=== PATIENT | male | born 1945 | race Caucasian/White ===

== ENCOUNTER 2017-10-22 06:46 | Day surgery (SDC) | payer MEDICARE, BC ==
[~2017-10-22 06:46] MED LIST: Lactated Ringers 1,000 ML IV SCH
[2017-10-22] MEDS ORDERED: Midazolam 1 MG/ML 2 ML SDV ONE (07:05)
[2017-10-22] MEDS ORDERED: fentaNYL 100 MCG/2 ML SDV ONE (07:05)
[2017-10-22] MEDS ORDERED: Propofol 200 MG/20 ML SDV ONE ×2 (07:05→07:49)
--- NOTE | 2017-10-22 07:18 | PCM.PREANE ---
Preanesthetic Assessment - Anesthesia/Transfusion/Family Hx Anesthesia History: Prior Anesthesia Without Reaction Other Type of Anesthesia Reaction Comment: denies any known problems in past Family History of Anesthesia Reaction: No Transfusion History: No Prior Transfusion(s) Intubation History: Unknown - Review of Systems General: No Symptoms Pulmonary: No Symptoms Cardiovascular: No Symptoms Gastrointestinal: Other (h/o colon polyps and diverticulitis x2) Neurological: No Symptoms Other: Reports: None - Physical Assessment Height: 1.75 m Weight: 94.801 kg ASA Class: 2 Mental Status: Alert & Oriented x3 Airway Class: Mallampati = 2 Dentition: Reports: Normal Dentition, [place](s) (gold crown upper left (back)) Thyro-Mental Finger Breadths: 3 Mouth Opening Finger Breadths: 2 ROM/Head Extension: Limited/Partial Lungs: Clear to Auscultation, Normal Respiratory Effort Cardiovascular: Regular Rate, Regular Rhythm - Allergies Allergies/Adverse Reactions: Allergies Allergy/AdvReac Type Severity Reaction Status Date / Time erythromycin base Allergy Hives Verified 10/18/17 08:02 - Blood Blood Available: No - Anesthesia Plan Pre-Op Medication Ordered: None - Acknowledgements Anesthesia Type Planned: MAC Pt an Appropriate Candidate for the Planned Anesthesia: Yes Alternatives and Risks of Anesthesia Discussed w Pt/Guardian: Yes Pt/Guardian Understands and Agrees with Anesthesia Plan: Yes PreAnesthesia Questionnaire Cardiovascular History: Reports: High Cholesterol, Hypertension Gastrointestinal History: Reports: Colon Polyp, Diverticulosis Genitourinary History: Reports: Other (See Below) Other Genitourinary History: prostate cancer Endocrine/Metabolic History: Reports: Obesity/BMI 30+ Oncologic (Cancer) History: Reports: Basal Cell Carcinoma, Prostate Other Dermatologic History: 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 - Past Surgical History Head Surgeries/Procedures: Reports: None GI Surgical History: Reports: Appendectomy, Colonoscopy Male Surgical History: Reports: Prostatectomy, Vasectomy Dermatological Surgical History: Reports: Skin Biopsy - SUBSTANCE USE Smoking Status *Q: Never Smoker Days Per Week of Alcohol Use: 7 Number of Drinks Per Day: 1 Total Drinks Per Week: 7 Recreational Drug Use History: No - HOME MEDS Home Medications: Home Meds Aspirin [Children's Aspirin] 81 mg PO ASDIRECTED 07/24/13 [History] Multivitamin [Multivitamins] 1 each PO DAILY 07/24/13 [History] Olmesartan/Hydrochlorothiazide [Benicar HCT 20-12.5 MG] 1 tab PO BRK 07/24/13 [ History] Ascorbate Calcium [Vitamin C] 2 tab PO DAILY 09/11/14 [History] Methylcellulose [Citrucel] 2 tab PO DAILY 09/11/14 [History] Psyllium [Metamucil] 4 tab PO DAILY 09/11/14 [History] Ubidecarenone [Co Q-10] 2 tab PO DAILY 09/11/14 [History] atorvaSTATin Calcium [Atorvastatin Calcium] 1 tab PO BEDTIME 09/11/14 [History] - CURRENT (IN HOUSE) MEDS Current Meds: Current Medications Lactated Ringer's (Ringers, Lactated) 1,000 mls @ 125 mls/hr IV ASDIRECTED ABIODUN
--- NOTE | 2017-10-22 08:18 | PCM.OPNOTE ---
- General Post-Op/Procedure Note Date of Surgery/Procedure: 10/22/17 Operative Procedure(s): Colonoscopy Pre Op Diagnosis: Personal history of colon polyps. History of diverticulosis. Post-Op Diagnosis: Pancolonic diverticulosis. Anesthesia Technique: MAC (ASA II) Primary Surgeon: Jesus Harris Condition: Good Free Text/Narrative:: DICTATION [id number] CPT CODE 06343
[2017-10-22] MEDS ORDERED: Lactated Ringers 1,000 ML IV SCH (08:30)
--- NOTE | 2017-10-22 08:34 | PCM.POSTAN ---
POST ANESTHESIA ASSESSMENT - MENTAL STATUS Mental Status: Alert, Oriented - RESPIRATORY Respiratory Status: Respiratory Rate WNL, Airway Patent, O2 Saturation Stable - CARDIOVASCULAR CV Status: Pulse Rate WNL, Blood Pressure Stable - GASTROINTESTINAL GI Status: No Symptoms - POST OP HYDRATION Hydration Status: Adequate & Stable
--- NOTE | 2017-10-22 09:06 | PCM48HPAN ---
Post Anesthesia Note - EVALUATION WITHIN 48HRS OF ANESTHETIC Vital Signs in Normal Range: Yes Patient Participated in Evaluation: Yes Respiratory Function Stable: Yes Airway Patent: Yes Cardiovascular Function Stable: Yes Hydration Status Stable: Yes Pain Control Satisfactory: Yes Nausea and Vomiting Control Satisfactory: Yes Mental Status Recovered: Yes Resp Rate: 10 - COMMENTS/OBSERVATIONS Free Text/Narrative:: no anesthesia problems
--- NOTE | 2017-10-22 12:15 | OR ---
SURGEON: Jesus Harris M.D. DATE OF PROCEDURE: 10/22/2017 OPEARTION PERFORMED: Colonoscopy. ANESTHESIA: MAC. ASA CLASSIFICATION: II. PREOPERATIVE DIAGNOSIS: Personal history of colon polyps. POSTOPERATIVE DIAGNOSIS: Pancolonic diverticulosis. DESCRIPTION OF PROCEDURE: The patient was taken to the endoscopy room, positioned on the endoscopy table in the left lateral decubitus position. Time-out was called for appropriate identification of the patient and procedure. Monitored anesthesia care was provided. The colonoscope was inserted into the rectum and advanced with moderate difficulty to the cecum where the colonoscope was retroflexed to visualize the ascending colon from below. The colonoscope was then straightened and slowly withdrawn. Cecum, ascending colon, hepatic flexure, transverse colon, splenic flexure, descending colon, sigmoid colon, and rectum were very well visualized. No tumors or polyps were encountered. The patient does demonstrate pancolonic diverticulosis with diverticula extending all way to the ascending colon. No stricture, spasm, or bleeding was noted. The most significant area of diverticulosis was in the sigmoid colon where there were some moderate erythematous changes. Again, no stricture or spasm was noted. The colonoscope was then withdrawn to the rectum and retroflexed to visualize the anal orifice from above. No tumors or polyps were seen within the rectum and there were no acute hemorrhoidal changes. The colonoscope was then straightened, the rectum aspirated, and the colonoscope removed. The patient tolerated the procedure well and was taken to recovery room in stable condition. SEYMOUR CARVAJAL /[id number]
[2017-10-22 14:22] VITALS: BP 107/59
== END 2017-10-22 09:15 | disposition home or self-care (01) ==
LOC: MW.SDS 06:46
PROVIDERS: ATTEND Surgery
DX: Z12.11 Encounter for screening for malignant neoplasm of colon (principal); K57.30 Diverticulosis of large intestine without perforation or abscess without bleeding; I10 Essential (primary) hypertension; E78.00 Pure hypercholesterolemia, unspecified; C61 Malignant neoplasm of prostate; E66.9 Obesity, unspecified; Z68.30 Body mass index [BMI] 30.0-30.9, adult; Z79.82 Long term (current) use of aspirin; Z79.899 Other long term (current) drug therapy; Z88.1 Allergy status to other antibiotic agents; Z86.010 Personal history of colon polyps; Z80.0 Family history of malignant neoplasm of digestive organs
CPT/HCPCS: G0105; J7120; J2250; J2704; J3010

== ENCOUNTER 2019-03-12 09:18 | Emergency (ER) | payer MEDICARE, BC ==
--- NOTE | 2019-03-12 09:31 | EDM.PDOC ---
ED HPI GENERAL MEDICAL PROBLEM - General Chief Complaint: Abdominal Pain Stated Complaint: STOMACH PAIN Time Seen by Provider: 03/12/19 09:24 - History of Present Illness INITIAL COMMENTS - FREE TEXT/NARRATIVE: HISTORY AND PHYSICAL: History of present illness: Patient 73-year-old male history of diverticulitis presents with concern of left -sided abdominal pain similar prior episodes he denies fever chills nausea vomiting other complaints I's history of urolithiasis denies trauma or other concern Review of systems: As per history of present illness and below otherwise all systems reviewed and negative. Past medical history: As per history of present illness and as reviewed below otherwise noncontributory. Surgical history: As per history of present illness and as reviewed below otherwise noncontributory. Social history: No reported history of drug or alcohol abuse. Family history: As per history of present illness and as reviewed below otherwise noncontributory. Physical exam: HEENT: Atraumatic, normocephalic, pupils reactive, negative for conjunctival pallor or scleral icterus, mucous membranes moist, throat clear, neck supple, nontender, trachea midline. Lungs: Clear to auscultation, breath sounds equal bilaterally, chest nontender. Heart: S1S2, regular, negative for clicks, rubs, or JVD. Abdomen: Soft, nondistended, no significant localized tenderness no rebound no guarding. Negative for masses or hepatosplenomegaly. Negative for costovertebral tenderness. Pelvis: Stable nontender. Genitourinary: Deferred. Rectal: Deferred. Extremities: Atraumatic, negative for cords or calf pain. Neurovascular unremarkable. Neuro: Awake, alert, oriented. Cranial nerves II through XII unremarkable. Cerebellum unremarkable. Motor and sensory unremarkable throughout. Exam nonfocal. Diagnostics: Refused by patient Therapeutics: None Impression: #1 left-sided abdominal pain #2 history diverticulitis Definitive disposition and diagnosis as appropriate pending reevaluation and review of above. Left Lower Abdomen Pain Score (Numeric/FACES): 7 - Related Data Allergies Allergy/AdvReac Type Severity Reaction Status Date / Time erythromycin base Allergy Hives Verified 03/12/19 09:21 Home Meds: Home Meds Aspirin [Children's Aspirin] 81 mg PO ASDIRECTED 07/24/13 [History] Multivitamin [Multivitamins] 1 each PO DAILY 04/07/14 [History] Olmesartan/Hydrochlorothiazide [Benicar HCT 20-12.5 MG] 1 tab PO BRK 07/24/13 [ History] Ascorbate Calcium [Vitamin C] 2 tab PO DAILY 09/11/14 [History] Methylcellulose [Citrucel] 2 tab PO DAILY 09/11/14 [History] Psyllium [Metamucil] 4 tab PO DAILY 09/11/14 [History] Ubidecarenone [Co Q-10] 2 tab PO DAILY 09/11/14 [History] atorvaSTATin Calcium [Atorvastatin Calcium] 1 tab PO BEDTIME 09/11/14 [History] Past Medical History Cardiovascular History: Reports: High Cholesterol, Hypertension Gastrointestinal History: Reports: Colon Polyp, Diverticulosis Genitourinary History: Reports: Other (See Below) Other Genitourinary History: prostate cancer Endocrine/Metabolic History: Reports: Obesity/BMI 30+ Oncologic (Cancer) History: Reports: Basal Cell Carcinoma, Prostate Other Dermatologic History: 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 - Past Surgical History Head Surgeries/Procedures: Reports: None GI Surgical History: Reports: Appendectomy, Colonoscopy Male Surgical History: Reports: Prostatectomy, Vasectomy Dermatological Surgical History: Reports: Skin Biopsy ED ROS GENERAL - Review of Systems Review Of Systems: Comprehensive ROS is negative, except as noted in HPI. ED EXAM, GENERAL - Physical Exam Exam: See Below (See dictation) Course - Vital Signs Text/Narrative:: Patient declines any diagnostic states that similar episodes in the past this is mildly requested. Treatment with antibiotics and close follow-up with private medical doctor he understands risks and benefits and does agree to return for any persistent or worsening pain nausea vomiting fever chills as discussed Last Recorded V/S: Last Vital Signs Temp 36.8 C 03/12/19 09:24 Pulse 88 03/12/19 09:24 Resp 14 03/12/19 09:24 BP 147/73 H 03/12/19 09:24 Pulse Ox 95 03/12/19 09:24 Departure - Departure Time of Disposition: :30 Disposition: Home, Self-Care 01 Condition: Good Clinical Impression: Abdominal pain, History of diverticulitis - Discharge Information Referrals: Omar Tovar MD [Primary Care Provider] - Additional Instructions: The following information is given to patients seen in the emergency department who are being discharged to home. This information is to outline your options for follow-up care. We provide all patients seen in our emergency department with a follow-up referral. The need for follow-up, as well as the timing and circumstances, are variable depending upon the specifics of your emergency department visit. If you don't have a primary care physician on staff, we will provide you with a referral. We always advise you to contact your personal physician following an emergency department visit to inform them of the circumstance of the visit and for follow-up with them and/or the need for any referrals to a consulting specialist. The emergency department will also refer you to a specialist when appropriate. This referral assures that you have the opportunity for followup care with a specialist. All of these measure are taken in an effort to provide you with optimal care, which includes your followup. Under all circumstances we always encourage you to contact your private physician who remains a resource for coordinating your care. When calling for followup care, please make the office aware that this follow-up is from your recent emergency room visit. If for any reason you are refused follow-up, please contact the [facility] emergency department at and asked to speak to the emergency department charge nurse. Brucero Flagyl as prescribed follow-up primary medical doctor 24-48 hours avoid alcohol diet as discussed return as needed as discussed
[2019-03-12 09:42] VITALS: BP 132/68; PULSE 82
== END 2019-03-12 09:42 | disposition home or self-care (01) ==
LOC: MW.ED 09:18
DX: R10.9 Unspecified abdominal pain (principal); I10 Essential (primary) hypertension; E78.00 Pure hypercholesterolemia, unspecified; E66.9 Obesity, unspecified; Z79.899 Other long term (current) drug therapy; Z87.19 Personal history of other diseases of the digestive system; Z88.1 Allergy status to other antibiotic agents; Z68.29 Body mass index [BMI] 29.0-29.9, adult
CPT/HCPCS: 99283

== ENCOUNTER 2024-11-25 08:08 | Emergency (ER) | payer MEDICARE, BC ==
[2024-11-25 08:41] VITALS: BP 107/73; PULSE 93
== END 2024-11-25 08:41 | disposition left against medical advice (07) ==
LOC: MW.ED 08:08
DX: K57.92 Diverticulitis of intestine, part unspecified, without perforation or abscess without bleeding (principal); I10 Essential (primary) hypertension; E78.00 Pure hypercholesterolemia, unspecified; E66.9 Obesity, unspecified; Z75.3 Unavailability and inaccessibility of health-care facilities; Z79.899 Other long term (current) drug therapy; Z88.1 Allergy status to other antibiotic agents; Z90.49 Acquired absence of other specified parts of digestive tract; Z68.29 Body mass index [BMI] 29.0-29.9, adult
CPT/HCPCS: 99282; 99283